=== PATIENT | female | born 1990 ===

== ENCOUNTER 2021-03-27 11:15 | Outpatient (RCR) | payer OTHER, SELFPAY ==
[2021-03-13 12:03] VITALS: BMI 37.8
--- NOTE | 2021-03-13 12:33 | PC.ADMIT ---
Patient is a 31 year old female who was referred to the PHP by her therapist d/t increase in depression and anxiety and reporting passive SI, no plan or intent. Patient reports she lost another job recently and reports it was d/t her mental health. She stated the job was overwhelming and that she burned herself out. Patient also stated she is having communication issues in her marriage and feels that she takes care of everyone else however stated she is not good at taking care of herself and her needs. Patient was overusing prescription Adderall last October and November as a way to cope with how she was feeling. Patient asked her prescriber to take her off as a result of her misuse. Patient is alert and oriented x4. Calm and cooperative. Presents with depressed anxious mood, somewhat hyperverbal. Denied current SI or thoughts to harm herself. Gave verbal permission to email her a copy of her safety plan. Asked who she could call if she was feeling unsafe and she stated her mom. Patient's medications reconciled with patient and patient's pharmacy. Patients Levothyroxine last filled for a 30 day supply 01/23/21. Patient stated she missed a few doses last week and the week before d/t scheduling issues at her job and that it was chaos . Patient reports that she has her thyroid levels checked monthly.
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
--- NOTE | 2021-03-14 15:05 | PC.NURSE ---
Case opened in treatment team
--- NOTE | 2021-03-21 14:12 | P.PNPSP_ITS ---
Subjective Subjective Date of Service: 03/21/21 Reason For Visit: MDD Interim History: The patient reported that in January 2021, she had Reynaud's syndrome with Strattera. She took Wellbutrin and her mood improved with more energy but she noticed some coldness on my fingers . She also noticed dry mouth for the last days. Medication Compliance: Yes Side effects from medications: Yes (side effects not in correlation with We llbutrin) Attending Groups: Yes Review of Systems Review of Systems Yes all other systems are reviewed and are negative Mental Status Exam Mental Status Exam Patient Appearance: Well Grooomed Patient Orientation: Person, Place, Time and Situation Level of Consciousness: Awake and Appropriate Patient Behavior: Appropriate Mood Description: Calm Affect Description: Calm and Appropriate Ability to Follow Directions: Good Speech Pattern: Clear Memory Description: Intact Hallucinations: None Delusions: Not Present Thought Process: Goal Oriented Thought Content: positive for Circumstantial Judgement: Fair Diagnostics Vital Signs (24Hr): Body Mass Index 37.8 Assessment & Plan Assessment & Plan (1) Dysthymia: Status: Acute Code(s): F34.1 - Dysthymic disorder Assessment and Plan: The patient reported that she had some improvement of mood with Wellbutrin but reported some side effects. Plan: 1. We will try another week and see if she still has side effects. Certification I certify that partial hospital treatment is medically necessary due to the symptoms and problems resulting from the patient's mental illness and the failure to treat the patient at the partial hospital level of care would likely result in the patient requiring inpatient psychiatric care which could not be prevented at a less intensive level of care. Greater than 50% of the session was spent on counseling and/or coordination of care Discharge Plan Discharge Attending provider: Vincent Ponce Medications: Continued clonidine HCl 0.1 mg Tablet 0.1 mg PO TID PRN (Reason: Anxiety) RF: 0 levonorgestrel-ethinyl estrad [Chateal EQ (28)] 0.15-0.03 mg Tablet 1 tab PO BEDTIME RF: 0 levothyroxine 100 mcg Tablet 100 mcg PO DAILY RF: 0 ergocalciferol (vitamin D2) [Vitamin D2] 1,250 mcg (50,000 unit) Capsule 1,250 mcg PO QWEEK RF: 0 bupropion HCl [Wellbutrin SR] 100 mg tablet sustained-release 12 hr 100 mg PO BID Qty: 14 RF: 0 Discontinued citalopram [Celexa] 10 mg Tablet 10 mg PO BEDTIME RF: 0 Telehealth Telehealth Location of provider rendering services: practice address Location of patient: address on file Patient Identification confirmed using: Name, : No Telehealth method: video Patient verbally consented to treatment: Yes Patient verbally consented to billing insurance company: Yes Patient informed of any privacy concerns related to visit: No Time spent with patient (mins): 15
--- NOTE | 2021-03-27 14:52 | HO.PHPPROGNO ---
Subjective Subjective Date of Service: 03/27/21 Reason For Visit: MDD Interim History: The patient reports that her depression has improved a lot, the coldness in her fingers has resolved. No safety issues Medication Compliance: Yes Side effects from medications: No Attending Groups: Yes Review of Systems Review of Systems Yes all other systems are reviewed and are negative Mental Status Exam Mental Status Exam Patient Appearance: Well Grooomed Patient Orientation: Person, Place, Time and Situation Level of Consciousness: Awake Patient Behavior: Appropriate and Cooperative Mood Description: Calm Affect Description: Calm Patient Cognition Impaired: No Ability to Follow Directions: Good Speech Pattern: Clear Memory Description: Intact Hallucinations: None Delusions: Not Present Thought Process: Goal Oriented Thought Content: positive for Intact Judgement: Fair Diagnostics Vital Signs (24Hr): Body Mass Index 37.8 Assessment & Plan Assessment & Plan (1) Dysthymia: Status: Acute Code(s): F34.1 - Dysthymic disorder Assessment and Plan: Adult female with several medications for depression in the past, referred for medication management. Plan: Since her mood has improved with Wellbutrin, we will keep it as prescribed. Certification I certify that partial hospital treatment is medically necessary due to the symptoms and problems resulting from the patient's mental illness and the failure to treat the patient at the partial hospital level of care would likely result in the patient requiring inpatient psychiatric care which could not be prevented at a less intensive level of care. Greater than 50% of the session was spent on counseling and/or coordination of care Discharge Plan Discharge Attending provider: Vincent Ponce Additional Instructions: Therapy-Laisha Myers- [facility] next appointment- 03/31/21 a2 1:45pm Psychiatry- Robles Haro- [facility] next appointment- 05/04/21 @ 9:20am Medications: Continued clonidine HCl 0.1 mg Tablet 0.1 mg PO TID PRN (Reason: Anxiety) RF: 0 levonorgestrel-ethinyl estrad [Chateal EQ (28)] 0.15-0.03 mg Tablet 1 tab PO BEDTIME RF: 0 levothyroxine 100 mcg Tablet 100 mcg PO DAILY RF: 0 ergocalciferol (vitamin D2) [Vitamin D2] 1,250 mcg (50,000 unit) Capsule 1,250 mcg PO QWEEK RF: 0 bupropion HCl [Wellbutrin SR] 100 mg tablet sustained-release 12 hr 100 mg PO BID Qty: 14 RF: 0 Discontinued citalopram [Celexa] 10 mg Tablet 10 mg PO BEDTIME RF: 0 Telehealth Telehealth Location of provider rendering services: practice address Location of patient: address on file Patient Identification confirmed using: Name, : Yes Telehealth method: video Patient verbally consented to treatment: Yes Patient verbally consented to billing insurance company: Yes Patient informed of any privacy concerns related to visit: No Time spent with patient (mins): 15
--- NOTE | 2021-03-28 10:28 | PC.NURSE ---
Reviewed patient discharge medications on 03/27/21. Medication Education provided. Patient appeared to understand her medications and take as prescribed.
--- NOTE | 2021-03-30 08:35 | PC.NURSE ---
Called and left message with clients therapist Bia aguirre clients dc from PHP
== END 2021-03-28 08:42 | disposition home or self-care (01) ==
LOC: HO.PHPA 11:15
PROVIDERS: Visit Provider Psychiatry & Neurology Psychiatry
DX: F34.1 Dysthymic disorder (principal); F98.8 Other specified behavioral and emotional disorders with onset usually occurring in childhood and adolescence
CPT/HCPCS: 90791; 90853

== ENCOUNTER 2024-03-20 08:08 | Outpatient (REF) | payer MEDICAID, SELFPAY ==
[2024-03-20 08:28] LABS: MANUAL DIFF FLAG NO
[2024-03-20 09:19] LABS: Basophils Absolute Auto 0.1 X10*3/uL (0.0-0.2); Basophils Percent Auto 0.5 % (0-2); Eosinophils Absolute Auto 0.2 X10*3/uL (0.0-0.4); Eosinophils Percent Auto 1.7 % (0-4); Hematocrit 37.2 % (37.0-47.0); Hemoglobin 12.4 g/dl (12.0-16.0); Imm Gran Abs Auto 0.05 X10*3/uL (0.00-0.03); Imm Gran Pct Auto 0.5 % (0.0-0.4); Lymphocytes Absolute Auto 1.2 X10*3/uL (1.2-4.9); Lymphocytes Percent Auto 11.2 % (20-40); Mean Corpuscular HGB Conc 33.3 g/dl (31.0-35.0); Mean Corpuscular Hemoglobin 30.9 pg (27.0-33.0); Mean Corpuscular Volume 92.8 fL (80.0-98.0); Mean Platelet Volume 9.1 fL (9.4-12.3); Monocytes Absolute Auto 0.4 X10*3/uL (0.1-1.2); Monocytes Percent Auto 4.2 % (2-11); Neutrophils Absolute Auto 8.7 x10*3/uL (2.0-8.3); Neutrophils Percent Auto 81.9 % (45-73); Platelet Count 458 X10*3/uL (160-400); Red Blood Count 4.01 X10*6/uL (4.20-5.50); Red Cell Distribution Width 13.2 % (11.0-16.0); White Blood Count 10.6 X10*3/uL (4.8-10.8)
[2024-03-20 09:31] LABS: Estimated Average Glucose 100 mg/dL; Hemoglobin A1c % 5.1 % (<6.0)
[2024-03-20 10:22] LABS: Alanine Aminotransferase 13 U/L (0-31); Albumin Level 4.2 g/dL (3.5-5.0); Alkaline Phosphatase 62 U/L (39-117); Anion Gap 12 (12-20); Aspartate Amino Transferase 13 U/L (5-31); Bilirubin Total 0.5 mg/dL (0.0-1.0); Blood Urea Nitrogen 10 mg/dL (9-16); Calcium 8.9 mg/dL (8.4-10.2); Carbon Dioxide 23 mmol/L (22-29); Chloride 105 mmol/L (96-108); Cholesterol 276 mg/dL (<200); Estimated Glomerular Filt Rate > 60; Glucose Fasting 97 mg/dL (60-99); HDL Cholesterol 67 mg/dL (>40); LDL Cholesterol Calculated 179 mg/dL (<100); Magnesium 1.9 mg/dL (1.6-2.6); Potassium 3.7 mmol/L (3.3-5.1); Sodium 136 mmol/L (135-145); Total Protein 7.8 g/dL (6.5-8.0); Triglycerides 153 mg/dL (<150)
[2024-03-20 10:25] LABS: Free T4 (Free Thyroxine) 1.03 ng/dL (0.71-1.85)
[2024-03-20 10:45] LABS: Vitamin B12 303 pg/mL (200-900)
== END 2024-03-20 08:09 | disposition home or self-care (01) ==
LOC: HO.LAB 08:08
PROVIDERS: Visit Provider Psychiatry & Neurology Psychiatry
DX: F39 Unspecified mood [affective] disorder (principal)
CPT/HCPCS: 36415; 80053; 80061; 82607; 83036; 83735; 84439; 84443; 85025

== ENCOUNTER 2024-03-30 10:30 | Outpatient (RCR) | payer OTHER, SELFPAY ==
[2024-03-17 13:34] VITALS: BP 147/95; PULSE 89
[2024-03-17 13:43] VITALS: BMI 40.5
--- NOTE | 2024-03-17 14:45 | PC.ADMIT ---
Patient is a 34 year old female who was referred to [facility] by crisis. According to Integrative assessment patient struggling with increased depression, anxiety, episode of rage, loss of job in December, and taking medications incorrectly as she was confused on how to take the medication and was physically sick from the medication. Patient reports to this copywriter that she is and had her marriage annulled after 4 years of marriage. Reports struggling with stress from the divorce and having to move back home with her parents. Regarding her job patient stated, I quit in December after 3 years. My mental health got physical I couldn't leave my house to go to work. Patient reports that she stopped taking Abilify and Hydroxyzine last Saturday as she reports vomitting. She stated she recently had the flu 2 weeks ago. She also stated that her provider told her she was not taking clonidine correctly even though she was following the instructions on the medication bottle and should not be on Ambien and Clonidine together thus she stopped taking these medications. She also reports she stopped taking Celexa. She reports having issues with vomiting and her prescriber. Patient is alert and oriented x4. Calm and cooperative. Presents with depressed mood and tearful affect at times. Denied SI, No HI. Patient given a copy of her safety plan if needed. Medications reconciled with patient's pharmacy and patient.
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
--- NOTE | 2024-03-19 15:25 | HO.PHP ---
Client's case has been opened and reviewed in treatment team.
--- NOTE | 2024-03-23 15:41 | PC.NURSE ---
Dr Zavala reviewed [place] labs completed including TSH 3rd Generation 11.30. Patient has a dx of Maria Elena's thyroiditis.
--- NOTE | 2024-03-23 20:49 | HO.PHPPROGNO ---
Subjective Subjective Date of Service: 03/23/24 Reason For Visit: MDD,anxiety Interim History: Patient reports continued mood lability. Is not currently on an antidepressant, has had trouble in the past with limited benefits or mixed results with increasing side [id number] ratio, on antidepressants. She eventually stops taking them for this reason. She reports that she gave citalopram a fair chance , having taken it for 1-2 years and stopped taking it in early January along with clonidine because of tolerance issues, and was unsure which was causing problems. She notes the last time saw that provider, she refused to take citalopram the provider also stopped the Ambien (even though the problem stopped with stopping the citalopram and clonidine). She may have tolerated WB SR in the past, helpful for feeling more controlled, less anxiety, however believes she may have developed Raynauds as cited reason for discontinuing. We also reviewed recent lab work including elevated LDLs and lipid panel and elevated TSH. She agrees to get a copy of her most recent lab work. Her PCP did not make any recommendations. She has tried to increase her daily activity, but says she plans to follow through with making improvements to lifestyle. She reports that her LFTs were elevated 3 months ago (they have normalized). Medication Compliance: Yes Side effects from medications: No Attending Groups: Yes Review of Systems Acute medical concerns: No Mental Status Exam Mental Status Exam Narrative: Alert, oriented, in no acute distress. Calm, cooperative, engaged. No psychomotor agitation or neurovegetative retardation. Eye contact maintained. Mood anxious, labile. Affect variable, anxious, tearful at moments, no irritability noted. Speech normal. Thought process linear, coherent. Thought content related to stressors, denies any helplessness, hopelessness or SI.? No aggressive ideation or HI. No paranoia or delusional content elicited. No evidence of psychosis. Insight and judgment fair but adequate. Diagnostics Vital Signs (24Hr): BMI result Body Mass Index 40.5 Assessment & Plan Assessment & Plan (1) MDD (major depressive disorder), recurrent episode, moderate: Status: Acute Code(s): F33.1 - Major depressive disorder, recurrent, moderate (2) JESSI (generalized anxiety disorder): Status: Acute Code(s): F41.1 - Generalized anxiety disorder Plan start Lamictal 25 mg qd (continue to increase by 25 mg q 2 weeks until 100 mg/d) continue guanfacine ER 1 mg qd continue LT4 125 mcg/d on BCP - reviewed interactions w lamotrigine (not sexually active) Continue to monitor as per protocol Patient educated on: diagnosis and medication risk/benefits Informed Consent: understands Reason for contiued partial hosp. stay Substantial Risk for: inability to function and med/psych decompensation Certification I certify that partial hospital treatment is medically necessary due to the symptoms and problems resulting from the patient's mental illness and the failure to treat the patient at the partial hospital level of care would likely result in the patient requiring inpatient psychiatric care which could not be prevented at a less intensive level of care. Total time managing care of this patient today _30___ minutes. Discharge Plan Discharge Attending provider: Ofelia Zavala Medications: New guanfacine 1 mg tablet extended release 24 hr 1 mg PO DAILY Qty: 20 0RF lamotrigine 25 mg tablet 25 mg PO DAILY 14 Days Qty: 14 0RF No Action levonorgestrel-ethinyl estrad [Royce (28)] 0.15-0.03 mg tablet 1 tab PO DAILY levothyroxine 125 mcg tablet 125 mcg PO DAILY ergocalciferol (vitamin D2) 1,250 mcg (50,000 unit) capsule 1,250 mcg PO QWEEK Print Language: Macedonian Telehealth Telehealth Telehealth Platform: Other (please specify) Location of provider rendering services: other (private office) Location of patient: other ([facility]) Patient Identification confirmed using: Name, : Yes Telehealth method: video Patient verbally consented to treatment: Yes
--- NOTE | 2024-03-24 09:19 | PC.NURSE ---
Lab results completed on 03/20/24 including Triglycerides 153, Cholesterol 276, LDL 179, TSH 11.30RBC 4.01, PLT 458, MPV 9.1, Neut 81.9, IMgran auto 0.5, Lymp 11.2, ANC 8.7, IMgran abs 0.05. Patient showed me lab results done on 02/28/24 TSH 3.27 and on 11/14/23 HDL 62, Cholesterol 268, Triglycerides 147, and LDL 177. Patient reports she feels anxious in the morning and sometimes vomits up her morning Levothyroxine. Patient interested in seeing a vp clinical research to work on lowering her cholesterol through diet. Colleenn given number to [id number] [facility] to call and set up an appointment. She plans on doing this today. Dr Zavala is aware of the above mentioned information.
[2024-03-27 12:12] VITALS: BP 126/74; PULSE 100
--- NOTE | 2024-03-30 13:43 | PC.NURSE ---
Sharri participated in group discussion about social supports and connecting with the community. Discussion and information provided on local resources for mental health in the area. She shared with the group that she has family, her mother and sister and she has dogs she goes for walks with. Sharri discussed information about the [employer] and would like to join in and become active some local activities that are offered.
--- NOTE | 2024-03-30 13:54 | PC.NURSE ---
DC paperwork reviewed, medications reviewed and patient to f/u with her out patient provider and therapist.
--- NOTE | 2024-03-30 21:40 | P.PNPSP_ITS ---
Subjective Subjective Date of Service: 03/30/24 Reason For Visit: MDD,anxiety Interim History: Patient seen for follow-up, anticipating discharge at the end of program today.? I'm tired today Patient reports getting emotional over the weekend due to the stress of getting a new cell phone and there were some complications with transferring the plan. Mostly she was upset that her mother said she is too sensitive which hurt her feelings. Was very emotional about this yesterday and ruminated on it all night, which contributed to poor sleep as she forgot to take the guanfacine last night. She is doing okay today, guanfacine has been helpful with anxiety and feeling a little more focused. She feels she would do better with 2 mg of guanfacine at night as it has taken a little edge off of overthinking and stress and I suggest she could take it earlier in the evening to benefit. She denies any adverse effects. She continues on Lamictal and is due to bump up to 50 mg at the end of the week. She looks forward to better emotional regulation. Denies any issues with rashes. She is aware if she misses more than 2 days of doses she should notify her doctor straight away who will determine if she needs to start back at a lower dose. She is aware to notify doctor for any rashes, and has been educated on Sanders Toby Syndrome, especially if there is no clear cause for the rash Reports no acute issues or concerns. Medication compliant, medications well- tolerated. Denies any adverse effects.? Mood is stable.? Denies any hopelessness or SI. Denies thoughts of harming self or others at this time. Denies any aggressive ideation or HI. Denies any paranoia or AH or VH. Sleep, appetite, energy stable. Medication Compliance: Yes Side effects from medications: No Attending Groups: Yes Review of Systems Acute medical concerns: No Mental Status Exam Mental Status Exam Narrative: Alert, oriented, in no acute distress. Calm, cooperative, engaged. No psychomotor agitation or neurovegetative retardation. Eye contact maintained. Mood less anxious, less labile. Affect variable, brighter, no lability, terafulness or irritability noted. Speech normal. Thought process linear, coherent. Thought content related to stressors, denies any helplessness, hopeles sness or SI.? No aggressive ideation or HI. No paranoia or delusional content elicited. No evidence of psychosis. Insight and judgment fair but adequate. Diagnostics Vital Signs (24Hr): BMI result Body Mass Index 40.5 Assessment & Plan Assessment & Plan (1) MDD (major depressive disorder), recurrent episode, moderate: Status: Acute Code(s): F33.1 - Major depressive disorder, recurrent, moderate (2) JESSI (generalized anxiety disorder): Status: Acute Code(s): F41.1 - Generalized anxiety disorder Plan Discharge from [facility] continue Lamictal 25 mg qd (continue to increase by 25 mg q 2 weeks until 100 mg/d) continue guanfacine ER 1 mg qAM increase guanfacine ER to 1-2 mg qhs continue regular medications will defer further medication management to outpatient provider Refills sent to pharmacy Patient educated on: diagnosis and medication risk/benefits Informed Consent: understands Reason for contiued partial hosp. stay Substantial Risk for: stable for discharge Certification I certify that partial hospital treatment is medically necessary due to the symptoms and problems resulting from the patient's mental illness and the failure to treat the patient at the partial hospital level of care would likely result in the patient requiring inpatient psychiatric care which could not be prevented at a less intensive level of care. Total time managing care of this patient today __30__ minutes. Discharge Plan Discharge Attending provider: Ofelia Zavala Additional Instructions: Sharri has a med provider, Adebayo Parry, through [facility], in which her next scheduled appointment is on April 02, 2024 at 8:20 AM via telehealth. Sharri has an OP therapist, Antonio Maria, through [facility], in which her next scheduled appointment is March 30, 2024 at 4 PM. Medications: New lamotrigine 25 mg tablet See Rx Instructions .ROUTE .COMPLEX 30 Days Qty: 75 0RF Rx Instructions: take 2 tablets po daily for 2 weeks, then increase to 3 tablets po daily guanfacine 1 mg tablet extended release 24 hr 1 - 2 mg PO QPM Qty: 14 0RF Continued levonorgestrel-ethinyl estrad [[place] (28)] 0.15-0.03 mg tablet 1 tab PO DAILY levothyroxine 125 mcg tablet 125 mcg PO DAILY ergocalciferol (vitamin D2) 1,250 mcg (50,000 unit) capsule 1,250 mcg PO QWEEK Changed guanfacine 1 mg tablet extended release 24 hr 1 mg PO QAM Qty: 14 0RF Stand Alone Forms: Patient Portal Discharge page Patient Education: Depression (DC), Anxiety (GEN) Print Language: Divehi
--- NOTE | 2024-04-09 11:33 | PC.NURSE ---
Antonio from patient's PCP's office called left a message stating Dr Tierney reviewed the lab results that were faxed to them. She has an upcoming appointment. D/C paperwork was also faxed including medications.
== END 2024-03-30 23:59 | disposition home or self-care (01) ==
LOC: HO.PHPA 10:30
PROVIDERS: Visit Provider Psychiatry & Neurology Psychiatry
DX: F33.1 Major depressive disorder, recurrent, moderate (principal); F41.1 Generalized anxiety disorder; Z79.899 Other long term (current) drug therapy
CPT/HCPCS: 90791; 90853